=== PATIENT | female | born 1980 | race Asian ===

== ENCOUNTER → 2018-07-28 | Outpatient (CLI) | payer BC ==
--- NOTE | 2018-07-28 11:45 | RAD ---
Obstetrical ultrasound, 07/28/2018: HISTORY: Supervision of normal There is a single intrauterine fetus in a cephalic orientation. The biparietal diameter measures 4.9 cm compatible with a gestational age of 21 weeks. This corresponds well with the other measurements yielding an average gestational age of 20 weeks and 6 days and a sonographic EDC of 12/09/2018. Normal activity and heart motion were seen. A four-chamber heart is evident with a heart rate of 143 bpm. Fluid is evident in the bladder and stomach. The visualized portions of the kidneys and spine are unremarkable. A three-vessel umbilical cord is identified with a normal cord insertion site. A normal amount of amniotic fluid is present with the SAMMY calculated at 10.2. The placenta lies anteriorly with no evidence of a placenta previa. The cervical length is proximally 4 cm. IMPRESSION: Single viable intrauterine fetus of approximately 21 weeks gestational age as described above. Electronically signed by: Cosme Ascencio MD (07/28/2018 11:43 AM) [facility]
== END | disposition home or self-care (01) ==
LOC: US 09:22
PROVIDERS: ATTEND Family Medicine
DX: O09.92 Supervision of high risk pregnancy, unspecified, second trimester (principal); Z3A.21 21 weeks gestation of pregnancy
CPT/HCPCS: 76805

== ENCOUNTER 2018-12-04 18:54 | Inpatient (IN) | payer BC ==
[~2018-12-04] VITALS: Ht 160 cm; Wt 69.9 kg
[2018-12-04] MEDS ORDERED: IBUPROFEN 400 MG TABLET. PO PRN (19:00)
[2018-12-04] MEDS ORDERED: LIDOCAINE 1% PF 30 ML VIAL. INJ PRN (19:00)
[2018-12-04] MEDS ORDERED: CITRIC ACID/SODIUM CITRATE 30 ML SOLUTION. PO PRN (19:00)
[2018-12-04] MEDS ORDERED: DINOPROSTONE 10 MG SUPP.VAG VG ONE (19:00)
[2018-12-04] MEDS ORDERED: ACETAMINOPHEN 325 MG TABLET. PO PRN (19:00)
[2018-12-04] MEDS ORDERED: NALBUPHINE 10 MG/ML AMPUL. IV PRN (19:00)
[2018-12-04] MEDS ORDERED: fentaNYL PF VIAL 100 MCG/2 ML VIAL IV PRN (19:00)
[2018-12-04] MEDS ORDERED: OXYTOCIN 30 UNIT/500 ML PREMIX 500 ML IV PRN (19:00)
[2018-12-04] MEDS ORDERED: ONDANSETRON PF 4 MG/2 ML VIAL. IV PRN (19:00)
[2018-12-04] MEDS ORDERED: BUTORPHANOL 2 MG/ML VIAL. IV PRN (19:00)
[2018-12-04] MEDS ORDERED: 0.9 % SODIUM CHLORIDE 10 ML DISP.SYRIN. IV PRN (19:00)
[2018-12-04] MEDS ORDERED: TERBUTALINE 1 MG/ML VIAL. SQ PRN (19:00)
[2018-12-04 19:37] LABS: BILIRUBIN,URINE SMALL (NEG); CLARITY,URINE CLEAR; NITRITE,URINE NEGATIVE (NEG); PROTEIN,URINE NEGATIVE (NEG-TRACE)
[2018-12-04 19:42] LABS: COLOR,URINE AMBER
[2018-12-04 19:43] LABS: SQUAMOUS EPITHELIAL CELL,UR MANY /LPF
[2018-12-04 19:44] LABS: BACTERIA,URINE MANY /HPF (0-FEW); WBC,URINE 20-40 /HPF (0-4)
[2018-12-04] MEDS: IV RINGERS,LACTATED 1000ML 1,000 ML IV SCH (19:58)
[2018-12-04 20:14] LABS: BASO % 0 % (0-3); EOS # 0.1 x10^3/uL (0.0-0.7); EOS % 1 % (0-3); HEMATOCRIT 37.2 % (36.0-47.0); HEMOGLOBIN 12.9 g/dL (12.0-15.5); LYMPH # 1.3 x10^3/uL (1.0-4.8); LYMPH % 16 % (24-48); MEAN CORPUSCULAR HEMOGLOBIN 32 pg (25-35); MEAN CORPUSCULAR HGB CONC 35 g/dL (31-37); MEAN CORPUSCULAR VOLUME 91 fL (79-100); MONO # 0.6 x10^3/uL (0.0-1.1); MONO % 7 % (0-9); NEUT # 6.4 x10^3/uL (1.8-7.7); NEUT % 76 % (31-73); PLATELET COUNT 201 x10^3/uL (140-400); RED BLOOD COUNT 4.11 x10^6/uL (3.50-5.40); RED CELL DISTRIBUTION WIDTH 13.7 % (11.5-14.5); WHITE BLOOD COUNT 8.4 x10^3/uL (4.0-11.0)
[2018-12-04 23:43] VITALS: BP 131/68
[2018-12-05] MEDS ORDERED: ZOLPIDEM 5 MG TABLET. PO PRN
[2018-12-05] MEDS ORDERED: OXYTOCIN 30 UNIT/500 ML PREMIX 500 ML IV PRN (07:00)
[2018-12-05] MEDS ORDERED: OXYTOCIN PREMIX 30 UNIT/500 ML NS BAG. IV ONE (08:00)
[2018-12-05] MEDS: IV RINGERS,LACTATED 1000ML 1,000 ML IV SCH ×3 (09:16→18:58)
[2018-12-05] MEDS ORDERED: ROPIVacaine 0.2% PF 10 ML VIAL. ONE ×2 (13:32→14:00)
[2018-12-05] MEDS ORDERED: L&D EPIDURAL SYRINGE 50 ML ONE (13:33)
[2018-12-05] MEDS ORDERED: IV RINGERS,LACTATED 1000ML 1,000 ML IV SCH (13:58)
[2018-12-05] MEDS ORDERED: L&D EPIDURAL 50 ML SYRINGE. ONE (14:00)
[2018-12-05] MEDS ORDERED: L&D EPIDURAL SYRINGE 50 ML EPID PRN (14:00)
[2018-12-05] MEDS ORDERED: NALOXONE 0.4 MG/ML VIAL. IV PRN (14:00)
[2018-12-05] MEDS ORDERED: ROPIVacaine 0.2% IN 0.9%NACL PF 40 MG/20 ML DISP.SYRIN. EPID PRN (14:00)
[2018-12-05] MEDS ORDERED: ePHEDrine PF IN SALINE 50 MG/10 ML SYRINGE. IV PRN (14:00)
--- NOTE | 2018-12-05 18:54 | PDOC1 ---
OB - History Hx of Present Care: Good Care Ultrasounds: Normal mid trimester US Medical Complications: Other (advanced maternal age, hx - std) Past Family/Social History * Past Medical, Surgical, Family and Obstetric Histories reviewed from chart. Blood Type: A+ Rubella: Immune RPR/VDRL: Negative GBS Status: Negative HBsAG: Negative OB - Chief Complaint & HPI Date of Admission: Date of Admission: Dec 04, 2018 at 18:54 Chief Complaint/History : 2 Para: 0 EDC: Dec 03, 2018 Reason for admission: induction of labor Indication for induction: post dates Admission Nurse Assessment Rev: Yes OB - Admission Exam Physical Exam Vitals: VS - Last 72 Hours, by Label Date Time Temp Pulse Resp B/P (MAP) Pulse Ox O2 Delivery O2 Flow Rate FiO2 12/04/18 23:43 98.3 109 18 131/68 (89) 98 Room Air 98.3 HEENT: Normal, Nasal Mucosa Normal, Oropharynx Normal, Moist Membranes, Fontanelles Normal Lungs: Clear, Equal Abdomen: Gravid Extremities: Normal Pulses, No tenderness or swelling Reflexes: Normal Effacement: 50% Station: -3 Membranes: Intact Amniotic Fluid: Clear Heart Rate: Normal Accelerations: Accelerations Present Decelerations: No decelerations Short Term Variability: Present Prompt Care Rn Variability: Moderate Contractions on Admission: None Intensity: Moderate (Bloody show, Mild hyperstim with cervadil) JOSE SOLORZANO MD Dec 05, 2018 18:53
--- NOTE | 2018-12-05 22:03 | OP ---
DATE OF SURGERY: 12/05/2018 DELIVERY NOTE CLINICAL COURSE: This patient is a 38-year-old [place] female who was admitted for postdate induction. She had an uncomplicated course except for evidence of STD and late maternal age. The patient is admitted with Cervidil the day before delivery and did have good cervical changes from 1 cm and 50% to 2 cm and 80%. She has significant bloody show and had some hyperstimulant reactions, therefore Cervidil was pulled early. Artificial rupture of membranes was done with clear fluid noted. Contraction pattern improved. Internal scalp electrode and IUP was placed and the patient progressed through labor without complication. The patient began having decelerations at terminal end of pushing and Freeman forceps were applied. Baby was delivered in the OA position over a third-degree midline laceration. Infant's head was suctioned and then delivered and was delivered. Cord resuscitation was done. Spontaneous cry and activity were noted. Infant was suctioned. Cord was clamped, transected and handed off to nursery. Placenta was then delivered with 3-vessel cord noted. Uterus was firm with Pitocin and palpation, third-degree laceration was closed in layered fashion. Initially, the muscle was approximated with Vicryl with [id number] stitches superiorly, anteriorly, inferiorly as well as posteriorly. Second-degree was then closed with a 3-0 chromic in a running locking fashion. Right-sided vaginal laceration was sutured with 2-0 chromic in a running fashion. There was good hemostasis. Approximately 300 mL blood loss during this delivery. Epidural anesthesia was used during this delivery, approximately 5 cm. Mother and baby to recovery in stable condition. JOSE SOLORZANO MD DR: HERMES/myla JOB#: [id number] / [id number]
[2018-12-06 01:16] VITALS: BP 119/68
[2018-12-06] MEDS: IV RINGERS,LACTATED 1000ML 1,000 ML IV SCH ×2 (02:58→10:58)
[2018-12-06 05:17] VITALS: BP 94/51
[2018-12-06 08:00] VITALS: BP 105/61
[2018-12-06] MEDS ORDERED: FLU VAX QS 2019-20 (36MOS+)/PF 0.5 ML SYRINGE. VAX IM ONE (09:00)
[2018-12-06 12:02] VITALS: BP 108/44
[2018-12-06] MEDS ORDERED: ACETAMINOPHEN 325 MG TABLET. PO PRN (12:45)
[2018-12-06] MEDS ORDERED: MAG HYDROX/ALUMINUM HYD/SIMETH 30 ML ORAL.SUSP PO PRN (12:45)
[2018-12-06] MEDS ORDERED: diphenhydrAMINE HCL 25 MG CAPSULE PO PRN (12:45)
[2018-12-06] MEDS ORDERED: SIMETHICONE 80 MG TAB.CHEW PO PRN (12:45)
[2018-12-06] MEDS ORDERED: HYDROCORTISONE 1% TOPICAL OINTMENT 30GM TUBE. TP PRN (12:45)
[2018-12-06] MEDS ORDERED: PHENYLEPH/MINERAL OIL/PETROLAT RECTAL OINTMENT TUBE. RC PRN (12:45)
[2018-12-06] MEDS ORDERED: OXYTOCIN 30 UNIT/500 ML PREMIX 500 ML IV PRN (12:45)
[2018-12-06] MEDS ORDERED: ZOLPIDEM 5 MG TABLET. PO PRN (12:45)
[2018-12-06] MEDS ORDERED: MMR per PROTOCOL. MC PRN (12:45)
[2018-12-06] MEDS ORDERED: BENZOCAINE 20% TOPICAL AEROSOL SPRAY 57GM CAN. TP PRN (12:45)
[2018-12-06] MEDS ORDERED: 0.9 % SODIUM CHLORIDE 10 ML DISP.SYRIN. IV PRN (12:45)
[2018-12-06] MEDS ORDERED: HYDROcodone/APAP 5/325MG 1 TAB TABLET PO PRN (12:45)
[2018-12-06] MEDS ORDERED: MAGNESIUM HYDROXIDE 2,400 MG/30 ML ORAL.SUSP. PO PRN (12:45)
[2018-12-06 13:56] LABS: HEMATOCRIT 30.3 % (36.0-47.0); HEMOGLOBIN 10.1 g/dL (12.0-15.5); RED BLOOD COUNT 3.3 x10^6/uL (3.50-5.40); RED CELL DISTRIBUTION WIDTH 13.8 % (11.5-14.5); WHITE BLOOD COUNT 12.9 x10^3/uL (4.0-11.0)
[2018-12-06 16:30] VITALS: BP 118/73
--- NOTE | 2018-12-06 17:48 | PDOC ---
PROGRESS NOTES Subjective Subjective Patient doing well day 1. Tolerating diet ambulating having decreased bleeding and low a good pain control with medications. Objective Objective Vital Signs Date Time Temp Pulse Resp B/P (MAP) Pulse Ox O2 Delivery O2 Flow Rate FiO2 12/06/18 16:30 Room Air 12/06/18 16:30 97.2 97 14 118/73 (88) 98 97.2 Intake and Output0 12/06/18 07:00 Intake Total 50 ml Balance 50 ml Intake Oral 50 ml # Voids 1 Physical Exam Abdomen: Normal bowel sounds, Other (uterus firm and below umbilicus) Heart: Regular rate Extremities: No edema, Other (negative Homans sign) General: Alert Lungs: Clear to auscultation Assessment Assessment day #1. Plan Plan of Care Continue routine care. Comment Review of Relevant I have reviewed the following items kecia (where applicable) has been applied. Labs Laboratory Tests Test 12/04/18 19:25 12/04/18 20:00 12/06/18 13:35 Urine Collection Type Unknown Urine Color Sylwia Urine Clarity Clear Urine pH 6.0 Urine Specific [place]hton 1.025 Urine Protein Negative mg/dL (NEG-TRACE) Urine Glucose (UA) 250 mg/dL (NEG) Urine Ketones (Stick) Negative mg/dL (NEG) Urine Blood Large (NEG) Urine Nitrite Negative (NEG) Urine Bilirubin Small (NEG) Urine Urobilinogen Dipstick 2.0 mg/dL (0.2 mg/dL) Urine Leukocyte Esterase Large (NEG) Urine RBC 6-10 /HPF (0-2) Urine WBC 20-40 /HPF (0-4) Urine Squamous Epithelial Cells Many /LPF Urine Bacteria Many /HPF (0-FEW) Urine Mucus Mod /LPF White Blood Count 8.4 x10^3/uL (4.0-11.0) 12.9 x10^3/uL (4.0-11.0) Red Blood Count 4.11 x10^6/uL (3.50-5.40) 3.30 x10^6/uL (3.50-5.40) Hemoglobin 12.9 g/dL (12.0-15.5) 10.1 g/dL (12.0-15.5) Hematocrit 37.2 % (36.0-47.0) 30.3 % (36.0-47.0) Mean Corpuscular Volume 91 fL (79-100) 92 fL (79-100) Mean Corpuscular Hemoglobin 32 pg (25-35) 31 pg (25-35) Mean Corpuscular Hemoglobin Concent 35 g/dL (31-37) 33 g/dL (31-37) Red Cell Distribution Width 13.7 % (11.5-14.5) 13.8 % (11.5-14.5) Platelet Count 201 x10^3/uL (140-400) 157 x10^3/uL (140-400) Neutrophils (%) (Auto) 76 % (31-73) Lymphocytes (%) (Auto) 16 % (24-48) Monocytes (%) (Auto) 7 % (0-9) Eosinophils (%) (Auto) 1 % (0-3) Basophils (%) (Auto) 0 % (0-3) Neutrophils # (Auto) 6.4 x10^3/uL (1.8-7.7) Lymphocytes # (Auto) 1.3 x10^3/uL (1.0-4.8) Monocytes # (Auto) 0.6 x10^3/uL (0.0-1.1) Eosinophils # (Auto) 0.1 x10^3/uL (0.0-0.7) Basophils # (Auto) 0.0 x10^3/uL (0.0-0.2) Treponema pallidum Antibody Nonreactive (Nonreactive) Laboratory Tests Test 12/06/18 13:35 White Blood Count 12.9 x10^3/uL (4.0-11.0) Red Blood Count 3.30 x10^6/uL (3.50-5.40) Hemoglobin 10.1 g/dL (12.0-15.5) Hematocrit 30.3 % (36.0-47.0) Mean Corpuscular Volume 92 fL (79-100) Mean Corpuscular Hemoglobin 31 pg (25-35) Mean Corpuscular Hemoglobin Concent 33 g/dL (31-37) Red Cell Distribution Width 13.8 % (11.5-14.5) Platelet Count 157 x10^3/uL (140-400) Medications Current Medications Sodium Chloride (Normal Saline Flush) 3 ml QSHIFT PRN IV AFTER MEDS AND BLOOD DRAWS; Start 12/04/18 at 19:00; Stop 12/06/18 at 12:37; Status DC Ringer's Solution 1,000 ml @ 125 mls/hr Q8H IV Last administered on 12/05/18at 15:30; Start 12/04/18 at 18:58 Nalbuphine HCl (Nubain) 10 mg PRN Q1HR PRN IV Severe labor pain; Start 12/04/18 at 19:00 Butorphanol Tartrate (Stadol) 2 mg PRN Q1HR PRN IV Severe labor pain; Start 12/04/18 at 19:00 Fentanyl Citrate (Fentanyl 2ml Vial) 100 mcg PRN Q30MIN PRN IV Severe pain; Start 12/04/18 at 19:00 Acetaminophen (Tylenol) 1,000 mg PRN Q6HRS PRN PO MILD PAIN / TEMP; Start 12/04/18 at 19:00; Stop 12/06/18 at 12:38; Status DC Ondansetron HCl (Zofran) 4 mg PRN Q4HRS PRN IV NAUSEA/VOMITING; Start 12/04/18 at 19:00 Citric Acid/ Sodium Citrate (Bicitra) 30 ml 1X PRN PRN PO DYSPEPSIA; Start 12/04/18 at 19:00; Stop 12/05/18 at 18:59; Status DC Terbutaline Sulfate (Brethine) 0.25 mg 1X PRN PRN SQ SEE COMMENTS; Start 12/04/18 at 19:00; Stop 12/05/18 at 18:59; Status DC Lidocaine HCl (Xylocaine 1% Pf 30ml Vial) 30 ml 1X PRN PRN INJ SEE COMMENTS; Start 12/04/18 at 19:00; Stop 12/06/18 at 18:59 Oxytocin/Sodium Chloride 500 ml @ 0 mls/hr CONT PRN IV SEE I/O RECORD Last administered on 12/05/18at 12:25; Start 12/05/18 at 07:00 Oxytocin/Sodium Chloride 500 ml @ 0 mls/hr CONT PRN PRN IV Post delivery bleeding; Start 12/04/18 at 19:00 Ibuprofen (Motrin) 800 mg PRN Q6HRS PRN PO PAIN MILD (2ND CHOICE)/INFLAMM Last administered on 12/06/18at 07:44; Start 12/04/18 at 19:00; Stop 12/06/18 at 12:37; Status DC Dinoprostone (Cervidil) 10 mg 1X ONCE VG Last administered on 12/04/18at 19:58; Start 12/04/18 at 19:00; Stop 12/04/18 at 19:06; Status DC Zolpidem Tartrate (Ambien) 5 mg PRN QHS PRN PO INSOMNIA Last administered on 12/05/18at 00:15; Start 12/05/18 at 00:00; Stop 12/06/18 at 12:39; Status DC Oxytocin/Sodium Chloride (Oxytocin Premix Infusion) 30 unit STK-MED ONCE IV ; Start 12/05/18 at 08:00; Stop 12/05/18 at 08:24; Status DC Ropivacaine (Naropin 0.2%) 10 ml STK-MED ONCE .ROUTE ; Start 12/05/18 at 13:32; Stop 12/05/18 at 13:33; Status DC Fentanyl Citrate 50 ml @ As Directed STK-MED ONCE .ROUTE ; Start 12/05/18 at 13:33; Stop 12/05/18 at 13:33; Status DC Ringer's Solution 1,000 ml @ 1,000 mls/hr Q1H IV Last administered on 12/05/18at 15:30; Start 12/05/18 at 13:58; Stop 12/05/18 at 14:57; Status DC Ephedrine Sulfate (ePHEDrine PF IN SALINE SYRINGE) 10 mg PRN Q2MIN PRN IV IF SBP<90; Start 12/05/18 at 14:00 Naloxone HCl (Narcan) 0.04 mg PRN Q1MIN PRN IV SEE COMMENTS; Start 12/05/18 at 14:00 Fentanyl Citrate 50 ml @ 14 mls/hr CONT PRN EPID PAIN; Start 12/05/18 at 14:00 Ropivacaine/ Sodium Chloride (ROPIVacaine 0.2% - 0.9%NACL PF) 40 mg 1X PRN PRN EPID PER ANESTHESIA; Start 12/05/18 at 14:00 Influenza Virus Vaccine Quadrival (Afluria Quad 2019-20 (3yr Up) Syringe) 0.5 ml ONCE ONCE VAX IM ; Start 12/06/18 at 09:00; Stop 12/06/18 at 09:01; Status DC Fentanyl Citrate (Jdnsfrnp-Rdwey-NV 3 Mcg-0.1%) 100 ml STK-MED ONCE .ROUTE ; Start 12/05/18 at 14:00; Stop 12/06/18 at 08:49; Status DC Ropivacaine (Naropin 0.2%) 10 ml STK-MED ONCE .ROUTE ; Start 12/05/18 at 14:00; Stop 12/06/18 at 08:49; Status DC Sodium Chloride (Normal Saline Flush) 10 ml QSHIFT PRN IV AFTER MEDS AND BLOOD DRAWS; Start 12/06/18 at 12:45 Oxytocin/Sodium Chloride 500 ml @ 62.5 mls/hr CONT PRN IV SEE I/O RECORD; Start 12/06/18 at 12:45; Stop 12/06/18 at 20:44 Acetaminophen (Tylenol) 650 mg PRN Q6HRS PRN PO MILD PAIN / TEMP; Start 12/06/18 at 12:45 Ibuprofen (Motrin) 800 mg Q8HRS PO ; Start 12/06/18 at 14:00 Magnesium Hydroxide (Milk Of Magnesia) 2,400 mg PRN DAILY PRN PO CONSTIPATION; Start 12/06/18 at 12:45 Al Hydroxide/Mg Hydroxide (Mylanta Plus Xs) 30 ml PRN Q4HRS PRN PO HEARTBURN / GAS; Start 12/06/18 at 12:45 Simethicone (Gas-X) 80 mg PRN AFTMEALHC PRN PO GAS / BLOATING; Start 12/06/18 at 12:45 Diphenhydramine HCl (Benadryl) 25 mg PRN Q6HRS PRN PO ITCHING; Start 12/06/18 at 12:45 Benzocaine (Americaine) 1 spray PRN QID PRN TP TOPICAL PAIN; Start 12/06/18 at 12:45 Phenyleph/Shark Oil/Min Oil/Petrol (Preparation H) 1 roque PRN QID PRN RC RECTAL PAIN; Start 12/06/18 at 12:45 Hydrocortisone (Cortaid) 1 roque PRN QID PRN TP PERINEAL PAIN; Start 12/06/18 at 12:45 Ferrous Sulfate (Feosol) 325 mg BIDWMEALS PO ; Start 12/07/18 at 08:00 Zolpidem Tartrate (Ambien) 5 mg PRN QHS PRN PO INSOMNIA, MAY REPEAT X1; Start 12/06/18 at 12:45 Info (Do NOT chart on this placeholder) 1 ea 1X PRN PRN MC SEE COMMENTS; Start 12/06/18 at 12:45 Info (Do NOT chart on this placeholder) 1 ea 1X PRN PRN MC SEE COMMENTS; Start 12/06/18 at 12:45 Acetaminophen/ Hydrocodone Bitart (Lortab 5/325) 1 tab PRN Q4HRS PRN PO MILD PAIN 1-3; Start 12/06/18 at 12:45 Acetaminophen/ Hydrocodone Bitart (Lortab 5/325) 2 tab PRN Q4HRS PRN PO MODERAT E PAIN, SEVERE PAIN; Start 12/06/18 at 12:45 Vitals/I & O Vital Sign - Last 24 Hours 12/06/18 12/06/18 12/06/18 12/06/18 01:04 01:16 05:17 08:00 Temp 97.8 97.9 97.5 97.8 97.9 97.5 Pulse 111 89 57 Resp 18 16 14 B/P (MAP) 119/68 (85) 94/51 (65) 105/61 (76) Pulse Ox 97 97 O2 Delivery Room Air Room Air Room Air Room Air 12/06/18 12/06/18 12/06/18 12/06/18 08:00 12:02 16:30 16:30 Temp 97.7 97.2 97.7 97.2 Pulse 89 97 Resp 16 14 B/P (MAP) 108/44 (65) 118/73 (88) Pulse Ox 98 98 O2 Delivery Room Air Room Air Room Air Room Air l Intake and Output 12/05/18 12/05/18 12/06/18 15:00 23:00 07:00 Intake Total 50 ml Balance 50 ml JOSE SOLORZANO MD Dec 06, 2018 17:48
[2018-12-06] MEDS: IBUPROFEN 400 MG TABLET. PO SCH ×2 (17:52→22:00)
[2018-12-06] MEDS: HYDROcodone/APAP 5/325MG 1 TAB TABLET PO PRN (20:16)
[2018-12-06 21:43] VITALS: BP 98/51
[2018-12-07] MEDS: IBUPROFEN 400 MG TABLET. PO SCH (03:54)
[2018-12-07] MEDS: HYDROcodone/APAP 5/325MG 1 TAB TABLET PO PRN (03:55)
[2018-12-07] MEDS ORDERED: FERROUS SULFATE 325 MG TABLET. PO SCH (08:00)
[2018-12-07 08:50] VITALS: BP 114/46
[2018-12-07] MEDS ORDERED: FLU VAX QS 2019-20 (36MOS+)/PF 0.5 ML SYRINGE. VAX IM ONE (09:15)
[2018-12-07] MEDS ORDERED: PNV1TABL34 PO (11:46)
[2018-12-07] MEDS ORDERED: HYDR-2761 PO (11:46)
[2018-12-07] MEDS ORDERED: IBUP-1027 PO (11:46)
--- NOTE | 2018-12-07 11:49 | PDOC3 ---
OB DISCHARGE SUMMARY DATE OF ADMISSION: 12/05/18 DATE OF DISCHARGE: 12/07/18 REASON FOR ADMISSION: Induction of labor INTRAPARTUM PROCEDURES: Foerceps (Low) DISCHARGE DIAGNOSIS: Term Delivered DISCHARGE INFORMATION: Diet HOSPITAL COURSE Routine JOSE SOLORZANO MD Dec 07, 2018 11:48
[2018-12-07 14:30] VITALS: BP 96/60
== END 2018-12-07 15:30 | disposition home or self-care (01) | DRG 768 ==
LOC: 3 SO LND 18:54 → 3 NORTH 12-06 00:47
PROVIDERS: ADMIT Family Medicine; ATTEND Family Medicine
PROC: 10E0XZZ Delivery of Products of Conception, External Approach (ICD-10-PCS; principal; 2018-12-05)
PROC: 0DQR0ZZ Repair Anal Sphincter, Open Approach (ICD-10-PCS; 2018-12-05)
PROC: 10907ZC Drainage of Amniotic Fluid, Therapeutic from Products of Conception, Via Natural or Artificial Opening (ICD-10-PCS; 2018-12-05)
PROC: 3E033VJ Introduction of Other Hormone into Peripheral Vein, Percutaneous Approach (ICD-10-PCS; 2018-12-05)
PROC: 3E0P7VZ Introduction of Hormone into Female Reproductive, Via Natural or Artificial Opening (ICD-10-PCS; 2018-12-05)
PROC: 00HU33Z Insertion of Infusion Device into Spinal Canal, Percutaneous Approach (ICD-10-PCS; 2018-12-05)
PROC: 3E0R3BZ Introduction of Anesthetic Agent into Spinal Canal, Percutaneous Approach (ICD-10-PCS; 2018-12-05)
DX: O48.0 Post-term pregnancy (principal); Z37.0 Single live birth; O70.20 Third degree perineal laceration during delivery, unspecified; O76 Abnormality in fetal heart rate and rhythm complicating labor and delivery; O62.2 Other uterine inertia; Z3A.39 39 weeks gestation of pregnancy
CPT/HCPCS: 36415; 81001; 85025; 85027; 86592; 86850; 86900; 86901; 87086; 90471; 90686; J2590; J2795; J7120; G0378

== ENCOUNTER → 2021-03-04 | Outpatient (CLI) | payer BC ==
[~2021-03-04] MED LIST: HYDR-2761 PO; IBUP-1027 PO; PNV1TABL34 PO
--- NOTE | 2021-03-04 09:08 | RAD ---
EXAMINATION: US OB <14 WKS +TV INDICATION: 40 years, Female, threatened . Vaginal bleeding for 7 days. COMPARISON: None. TECHNIQUE: Transabdominal and transvaginal ultrasound of the pelvis was performed with grayscale, spe ctral, and color doppler imaging. FINDINGS: Menstrual Status: Unknown LMP. Anteverted uterus, measures 8.2 x 5.7 x 4.9 cm. Somewhat oval-shaped cystic structure within the endo metrial cavity without yolk sac or pole, mean sac diameter measures 1.4 cm. Nabothian cysts pre sent. Ovaries are not visualized. No pelvic free fluid. IMPRESSION Oval-shaped cystic structure within the endometrial cavity without yolk sac or pole, with mean sac diameter measures 1.4 cm. Findings may represent early gestational sac with estimated age 6 weeks and 2 days. Recommend follow-up with serial beta-hCG and 10-14 days follow-up with pelvic ultrasound to confirm and exclude missed . Electronically signed by: Tatiana Ly MD (03/04/2021 9:06 AM) [id number]
== END ==
LOC: US 08:05
PROVIDERS: ATTEND Family Medicine
DX: O09.90 Supervision of high risk pregnancy, unspecified, unspecified trimester (principal); O20.0 Threatened abortion; O26.893 Other specified pregnancy related conditions, third trimester; N88.8 Other specified noninflammatory disorders of cervix uteri; Z3A.00 Weeks of gestation of pregnancy not specified
CPT/HCPCS: 76801; 76817